=== PATIENT | male | born 1970 | race Caucasian/White ===

== ENCOUNTER → 2021-05-02 10:21 | Outpatient (CLI) | payer OTHER, SELFPAY ==
--- NOTE | 2021-05-02 10:42 | EKG12_ITS ---
Test Reason : PREOP Blood Pressure : / mmHG Vent. Rate : 048 BPM Atrial Rate : 048 BPM P-R Int : 178 ms QRS Dur : 088 ms QT Int : 444 ms P-R-T Axes : 057 024 048 degrees QTc Int : 396 ms Sinus bradycardia Otherwise normal ECG Confirmed by TALA KILLIAN, ASHKAN ([id number]), medical editor JAMES MARIN ([id number]) on 05/03/2021 8:58:18 AM Referred By: Jose Alfredo Williamson Confirmed By:ASHKAN EDGAR MD
[2021-05-02 11:13] LABS: Hematocrit 43.8 % (40-54); Hemoglobin 14.4 g/dL (13.0-16.5); Mean Corp Hgb Conc 32.9 g/dL (32-36); Mean Corpuscular Hgb 29.6 pg (27.0-32.0); Mean Corpuscular Volume 89.9 fL (80-94); Platelet Count 199 K/mm3 (150-450); RBC Distribution Width CV 12.5 % (11.6-14.6); Red Blood Count 4.87 M/mm3 (4.6-6.2); White Blood Count 4.8 K/mm3 (4.4-11.0)
[2021-05-02 11:37] LABS: Anion Gap 6 (5-15); BUN 18 mg/dL (7-18); BUN/Creat Ratio 18.5 RATIO (10-20); Calcium,Total 8.7 mg/dL (8.5-10.1); Chloride 104 mmol/L (98-107); Creatinine, Serum 0.97 mg/dL (0.70-1.30); EST Glomerular Filtration Rate 86 mL/min (>60); Est Glom Filt Rate - Afr Amer 104 mL/min (>60); Glucose 99 mg/dL (74-106); Sodium Level 140 mmol/L (136-145)
== END ==
PROVIDERS: Referring Provider Otolaryngology; Visit Provider Otolaryngology
DX: Z01.818 Encounter for other preprocedural examination (principal)
CPT/HCPCS: 36415; 80048; 85027; 93005